=== PATIENT | female | born 1950 | race Caucasian/White ===

== ENCOUNTER 2016-11-27 14:08 | Inpatient (IN) | payer OTHER ==
[2016-11-27] MEDS ORDERED: NS 1,000 ML IV ONE (14:26)
[2016-11-27 14:41] LABS: % IMMATURE GRANULYOCYTES 0.3 % (0.0-1.1); ABSOLUTE IMMATURE GRANULOCYTES 0.02 10^3/uL (0.00-0.10); ADD DIFF? NO; ADD MORPH? NO; ADD SCAN? NO; ATYPICAL LYMPHOCYTE FLAG 10 (0-99); FRAGMENT RBC FLAG 0 (0-99); HEMATOCRIT 40.7 % (38.0-47.0); HEMOGLOBIN 14.1 g/dL (12.6-16.3); LEFT SHIFT FLG 0 (0-99); LIPEMIA HEMOLYSIS FLAG 90 (0-99); MEAN CELL HEMOGLOBIN 31.5 pg (27.9-34.1); MEAN CELL HEMOGLOBIN CONCENTR. 34.6 g/dL (32.4-36.7); MEAN CELL VOLUME 90.8 fL (81.5-99.8); MEAN PLATELET VOLUME 9.5 fL (8.7-11.7); PLATELET CLUMPS FLAG 10 (0-99); PLATELET COUNT 201 10^3/uL (150-400); RED BLOOD CELL COUNT 4.48 10^6/uL (4.18-5.33); RED CELL DISTRIBUTION WIDTH 12.8 % (11.5-15.2)
[2016-11-27 15:19] LABS: ANION GAP 14 mEq/L (8-16); CALCIUM 9.3 mg/dL (8.5-10.4); CARBON DIOXIDE 23 mEq/l (22-31); CHLORIDE 102 mEq/L (97-110); CREATININE 0.8 mg/dL (0.6-1.0); GLOMERULAR FILTRATION RATE > 60; GLUCOSE 119 mg/dL (70-100); POTASSIUM 4.1 mEq/L (3.5-5.2); SODIUM 139 mEq/L (134-144)
--- NOTE | 2016-11-27 15:29 | EDPHY ---
H & P Time Seen by Provider: 11/27/16 14:49 HPI/ROS: CHIEF COMPLAINT: Shortness of breath, left leg swelling HISTORY OF PRESENT ILLNESS: 66-year-old female presents with a one-week history of shortness of breath and left leg swelling. She returned from [facility] 8 days ago. The following day, she developed pain in her left calf, associated with gradually increasing swelling in the left calf. Also associated with gradually increasing shortness of breath. She is now short of breath while she is walking around her house. Intermittent swelling in both legs for 2 weeks. No associated chest pain, dizziness, cough or fever. No prior history of DVT or PE. REVIEW OF SYSTEMS: Constitutional: No fever, no chills Eyes: No visual changes ENT: No sore throat Respiratory: No cough Cardiac: No chest pain Gastrointestinal: No nausea, no vomiting, no abdominal pain Genitourinary: No hematuria, no dysuria Skin: No rash Neurological: No headache, no numbness, no weakness Psychiatric: No depression Past Medical/Surgical History: Denies Social History: Smoking Status: Never smoked Physical Exam: General Appearance: Alert, pleasant Eyes: Pupils equal and round, no conjunctival pallor or injection ENT, Mouth: Mucous membranes moist Neck: Normal inspection Respiratory: Lungs are clear to auscultation Cardiovascular: Regular tachycardia Gastrointestinal: Abdomen is soft and nontender Neurological: A&O, nonfocal, normal gait Skin: Warm and dry, no rash Extremities: left lower extremity swelling and tenderness Psychiatric: Mood and affect normal Constitutional: Initial Vital Signs Temperature (C) 36.7 C 11/27/16 14:12 Heart Rate 112 H 11/27/16 14:12 Respiratory Rate 22 H 11/27/16 14:12 Blood Pressure 152/74 H 11/27/16 14:12 O2 Sat (%) 90 L 11/27/16 14:12 O2 Delivery Mode Room Air O2 (L/minute) 2 Allergies/Adverse Reactions: meperidine HCl [From Demerol] Allergy (Intermediate, Verified 11/27/16 14:12) LOW BP Home Medications: Medication Instructions Recorded Ascorbic Acid [Vitamin C 500 mg 500 mg PO BID 11/27/16 (*)] Calcium Carbonate/Vitamin D3 1 each PO BID 11/27/16 [CALCIUM 600+D SOFTGEL] Herbals/Supplements -Info Only 1 ea PO DAILY 11/27/16 [place]-3 Fatty Acids/Fish Oil [Fish 1 each PO BID 11/27/16 Oil 1,000 mg Capsule] Vitamin B Complex [B Complex] 1 each PO DAILY 11/27/16 Medical Decision Making - Diagnostics EKG Interpretation: EKG interpreted by me reveals sinus rhythm, rate 97, no ST or T segment changes. Imaging: CT pulmonary angiogram read by Dr. Nain Atkinson reveals moderate to large volume bilateral pulmonary embolism including a nonocclusive saddle embolus. Bilateral lower extremity ultrasound read by Dr. Ruiz Pompa reveals bilateral lower extremity DVTs, greater on the left. ED Course/Re-evaluation: She is this patient presents with left lower extremity pain and swelling and gradually increasing shortness of breath. Clinical presentation consistent with acute pulmonary embolism and DVT. Stat bilateral lower extremity ultrasounds revealed DVTs and stat CT pulmonary angiogram reveals large volume PEs. Study results were discussed with the patient and her . Heparin per weight based protocol initiated. The patient was stable throughout her emergency department stay, with a normal blood pressure and mild tachycardia, with a heart rate in 100's. Oxygen 2 L by nasal cannula placed. IR thrombectomy /TPA not indicated in this stable pt. Will require close monitoring. The hospitalist service was consulted for admission. Differential Diagnosis: Differential diagnosis includes though it is not limited to pneumonia, pneumothorax, pulmonary embolism, aortic dissection, pericarditis, acute coronary syndrome. - Data Points Laboratory Results: Laboratory Results 11/27/16 14:29 11/27/16 14:29 Medications Given: Discontinued Medications Heparin Sodium (Porcine) (Heparin Injection) 0 unit IVP EDNOW ONE PRN Reason: Protocol Stop: 11/27/16 16:11 Last Admin: 11/27/16 16:36 Dose: 5,300 units Sodium Chloride (Ns) 1,000 mls @ 0 mls/hr IV ONCE ONE PRN Reason: Wide Open Stop: 11/27/16 14:27 Last Admin: 11/27/16 14:46 Dose: 1,000 mls Heparin Sodium (Porcine) (Heparin 50 Units/Ml (Premix)) 500 mls @ 0 mls/hr IV EDNOW ONE; Per Protocol PRN Reason: Protocol Stop: 11/27/16 16:11 Last Admin: 11/27/16 16:36 Dose: 500 mls Departure - Departure Disposition: [facility] Clinical Impression: Pulmonary embolism Qualifiers: Pulmonary embolism type: saddle Chronicity: acute Acute cor pulmonale presence : with acute cor pulmonale Qualified Code(s): I26.02 - Saddle embolus of pulmonary artery with acute cor pulmonale Condition: Serious
[2016-11-27] MEDS ORDERED: IOPAMIDOL (ISOVUE 370) 100 ML BTL IV ONE (15:38)
[2016-11-27] MEDS ORDERED: HEPARIN 10,000 UNIT/10 ML MDV IVP ONE (16:10)
[2016-11-27] MEDS ORDERED: HEPARIN/DEXTROSE 500 ML IV ONE (16:10)
--- NOTE | 2016-11-27 16:13 | CPEKG ---
Heart Rate: 97 RR Interval: 619 P-R Interval: 208 QRSD Interval: 82 QT Interval: 368 QTC Interval: 468 P Tafton: 45 QRS Tafton: -41 T Wave [place]on: 17 EKG Severity - ABNORMAL ECG - EKG Impression: SINUS RHYTHM EKG Impression: LEFT ANTERIOR FASCICULAR BLOCK EKG Impression: CONSIDER LEFT VENTRICULAR HYPERTROPHY Electronically Signed By: Teresita Lemus 27-Nov-2016 21:57:03
[2016-11-27 16:22] LABS: INR 1.08 (0.83-1.16); PROTIME(PATIENT) 13.9 SEC (12.0-15.0)
[2016-11-27 16:43] LABS: TROPONIN I < 0.012 ng/mL (0-0.034)
[2016-11-27 16:52] LABS: APTT 26.9 SEC (23.0-38.0)
[2016-11-27] MEDS ORDERED: ONDANSETRON 4 MG/2 ML VIAL IVP PRN (17:02)
[2016-11-27] MEDS ORDERED: ONDANSETRON DISINTEGRATING 4 MG TAB PO PRN (17:02)
[2016-11-27] MEDS ORDERED: ACETAMINOPHEN 325 MG TAB PO PRN (17:02)
--- NOTE | 2016-11-27 18:12 | GHP ---
[f rep st] HISTORY AND PHYSICAL DATE OF ADMISSION: 11/27/2016 CHIEF COMPLAINT: Bilateral pulmonary embolism and DVTs. HPI: The patient is a 66-year-old female with no significant past medical history, presenting with dyspnea and left leg pain. The patient and had been visiting [place] from October 27 through November 19. Flew for [place] to [place] to [facility] without issue. She states she was walking through the airport carrying luggage without any issues. Then a week ago she developed pain in her left calf that felt like a charley horse. It went away for a couple days and then restarted, and then radiated up to her thigh. The worst that the pain was 2-3. She noted that her ankles were swollen when she got back , but that is not uncommon when she flies. This went away. Then a few days ago noted left, greater than right, swelling in her ankle. What was most concerning for her is that she became very dyspneic last Friday. She can only walk a block without feeling short of breath. Denies chest pain, dizziness , lightheadedness. Stated she felt feverish with nonproductive cough. Also reported nasal congestion last week. REVIEW OF SYSTEMS: I completed 10-point review of systems, negative except as noted in HPI. PAST MEDICAL HISTORY: None. PAST SURGICAL HISTORY: Right knee surgery x3, cholecystectomy, hysterectomy, cyst on the salivary gland. FAMILY HISTORY: Mother with ovarian cancer. Brother with lymphoma. Father with diabetes. SOCIAL HISTORY: Lives in the area with her , been 45 years. Social drinker. No illicits or alcohol next. ALLERGIES: Demerol. MEDICATIONS: Calcium, herbals. PHYSICAL EXAM: VITAL SIGNS: Temperature 36.7, blood pressure 152/74, heart rate 112, now 96, respiration 20, sat 98% on 2 L, 90 on room air. GENERAL: The patient sitting up in bed, no acute distress. HEENT: PERRLA. EOMI. Oropharynx clear. CV: Regular rate and rhythm. No murmurs, gallops, or rubs. Trace pedal edema. LUNGS: Clear to auscultation bilaterally. ABDOMEN: Soft , nontender, nondistended. Positive bowel sounds. : No suprapubic or CVA tenderness. MUSCULOSKELETAL: 5/5 upper lower extremity strength. SKIN: Warm , dry. NEURO: 2 through 12 intact. PSYCH: Alert and oriented x3. LABS: WBC 7.8, hemoglobin 14, hematocrit 40, platelets 201, sodium 139, potassium 4.1, chloride 102, BUN 9, creatinine 0.8, glucose 119, calcium 9.3. Troponin less than 0.012. BNP 899. D-dimer was 19.8, INR 1.08. CTA, large volume of acute pulmonary thrombolic disease with features suggestive of right heart strain. Thrombus involves right and left lower lobe, right middle lobe, and to a lesser degree subsegmental branches of the bilateral upper lobes. A large central thrombus bridges the bifurcation in the right and left main pulmonary artery without occluding the main pulmonary arteries. IVC is minimally posteriorly deflected, suggesting right heart strain. EKG personally reviewed by me, normal sinus rhythm, LVH with T-wave inversion, 3 ST flattening in aVF. Ultrasound lower extremities intraluminal thrombus in the mid left femoral vein extending distally through the popliteal and calf veins. The right leg there is partial intraluminal thrombus in the right popliteal vein. ASSESSMENT AND PLAN: 1. Large volume pulmonary embolism, deep vein thrombosis. Suspect provoked in setting of recent travel. The patient is currently hemodynamically stable with systolic blood pressure 140s with minimal oxygen need. Started her on heparin drip in the emergency room. We will continue this. Add on BNP and troponin. Check an echocardiogram. There is no emergent need for lytics at this point. We will monitor closely in the SDU overnight. I discussed in length with both she and her in regard to oral anticoagulants Coumadin versus Xarelto. They will decide this overnight. 2. Diet: Regular. 3. Deep vein thrombosis prophylaxis, on heparin drip. PLAN: The patient warrants observation admission to the SDU given large clot burden, requiring heparin drip and serial laboratory monitoring. /[id number]/MODL MTDD
[2016-11-27] MEDS: CALCIUM CARB W/VIT D 500 MG TAB PO SCH (23:16)
[2016-11-27] MEDS: OMEGA-3 FATTY ACIDS 1,000 MG CAP PO SCH (23:16)
[2016-11-27] MEDS: ASCORBIC ACID 500 MG TAB PO SCH (23:16)
[2016-11-28 05:10] LABS: HEMOGLOBIN 11.7 g/dL (12.6-16.3); MEAN CELL HEMOGLOBIN 31.5 pg (27.9-34.1); MEAN CELL HEMOGLOBIN CONCENTR. 34.4 g/dL (32.4-36.7); MEAN CELL VOLUME 91.4 fL (81.5-99.8); RED BLOOD CELL COUNT 3.72 10^6/uL (4.18-5.33); RED CELL DISTRIBUTION WIDTH 12.8 % (11.5-15.2)
[2016-11-28 06:13] LABS: ANION GAP 8 mEq/L (8-16); CALCIUM 8.3 mg/dL (8.5-10.4); CARBON DIOXIDE 22 mEq/l (22-31); CHLORIDE 108 mEq/L (97-110); CREATININE 0.7 mg/dL (0.6-1.0); GLOMERULAR FILTRATION RATE > 60; GLUCOSE 121 mg/dL (70-100); POTASSIUM 4.2 mEq/L (3.5-5.2); SODIUM 138 mEq/L (134-144)
[2016-11-28] MEDS ORDERED: HEPARIN 10,000 UNIT/10 ML MDV IVP PRN (08:08)
[2016-11-28] MEDS ORDERED: HEPARIN/DEXTROSE 500 ML IV SCH (08:30)
[2016-11-28] MEDS ORDERED: Herbals/Supplements -Info Only PO SCH (09:00)
[2016-11-28] MEDS: ASCORBIC ACID 500 MG TAB PO SCH ×2 (09:52→21:18)
[2016-11-28] MEDS: OMEGA-3 FATTY ACIDS 1,000 MG CAP PO SCH ×2 (09:52→21:18)
[2016-11-28] MEDS: VITAMIN B COMPLEX 1 EA CAP/TAB PO SCH (09:52)
[2016-11-28] MEDS: CALCIUM CARB W/VIT D 500 MG TAB PO SCH ×2 (09:52→21:18)
--- NOTE | 2016-11-28 11:19 | ECHO ---
[id number] + + [address] : : [place] [address] : : [phone] + + Adult Echocardiographic Report + -------+ :Name: DENISE GARCIA KStudy Date: 11/28/2016 07:42 AM : : Hospital Admission Number: [id number] Locati on: 247: :: 1950 Gender: Female Height: 68 in : :Age: 66 yrs Race: WH Weight: 196 lb : :Reason For Study: Eval RV Strain : : BSA: 2.0 meter s2 : :History: Large Volume PE : + -------+ MMode/2D Measurements \T\ Calculations IVSd: 1.0 cm RVDd: 3.4 cm FS: 33.1 % Ao root diam: 2.6 cm LVPWd: 1.1 cm LVIDd: 3.8 cm EDV(Teich): 62.0 ml ACS: 1.7 cm LVIDs: 2.5 cm ESV(Teich): 23.3 ml EF(Teich): 62.4 % Normal Measurement Values: + + :LVIDd (3.5-5.7cm) IVSd (0.6-1.1cm) LVPWd (0.6-1.1cm) Aortic Root (2.0-3.7cm)Left Atrium (1.5-4.0cm): :LV Vol(d) (76-115ml) LV Vol(s) (29-48ml) Ejec Fraction (50-65%)PV Bowen (0.6- 1.2m/s) TV Bowen (0.4-1.0m/s) : :MV E Bowen (0.8-1.0m/s)MV A Bowen (0.3-1.0m/s)LVOT Bowen (0.7-1.2m/s) Asc Ao Bowen ( 0.9-1.8m/s) : + + Doppler Measurements \T\ Calculations MV E max bowen: Ao V2 max: LV V1 max: PA V2 max: 71.6 cm/sec 130.3 cm/sec 86.9 cm/sec 71.9 cm/sec MV A max bowen: Ao max P.8 mmHgLV V1 max PG: PA max P.3 cm/sec 3.0 mmHg 2.1 mmHg MV E/A: 0.78 TR max bowen: 305.4 cm/sec TR max P.3 mmHg RAP systole: 5.0 mmHg RVSP(TR): 42.3 mmHg Left Ventricle The left ventricle is normal in size. There is normal left ventricular wall thickness. The left ventricular ejection fraction is normal. There is Doppler evidence for diastolic dysfunction. Ejection Fraction = 63%. The left ventricular wall motion is normal. Right Ventricle The right ventricle is mildly dilated. The right ventricular systolic function is mildly reduced. Atria The left atrial size is normal. Right atrial size is normal. Mitral Valve There is mild mitral annular calcification. There is no evidence of mitral valve prolapse. There is no mitral valve stenosis. There is no mitral regurgitation noted. Tricuspid Valve There is mild tricuspid regurgitation. Right ventricular systolic pressure is 42mmHg. There is Doppler evidence for mild pulmonary hypertension. Aortic Valve The aortic valve is trileaflet. The aortic valve opens well. There is no aortic stenosis. There is no aortic insufficiency. Pulmonic Valve The pulmonic valve is normal in structure and function. There is no pulmonic valvular regurgitation. Great Vessels The aortic root is normal size. Pericardium/Pleural There is no pericardial effusion. Conclusion A complete two-dimensional transthoracic echocardiogram was performed (2D, M-mode, Doppler and color flow Doppler). The left ventricular ejection fraction is normal. There is Doppler evidence for diastolic dysfunction. Ejection Fraction = 63%. The left ventricular wall motion is normal. The right ventricle is mildly dilated. The right ventricular systolic function is mildly reduced. There is mild mitral annular calcification. There is mild tricuspid regurgitation. Right ventricular systolic pressure is 42mmHg. There is Doppler evidence for mild pulmonary hypertension. The aortic valve is trileaflet. There is no pericardial effusion. Final Reading Physician: David Davison signed on 11/28/2016 11:18 AM Ordering Physician: Mini Davila Performed By: Xavier Maharaj, CS
--- NOTE | 2016-11-28 11:39 | GCON ---
[f rep st] CONSULTATION IMPLEMENTATION ARCHITECT CONSULTATION. REASON FOR ADMISSION: Pulmonary embolus, DVT. HISTORY OF PRESENT ILLNESS: Ms. Kimball is an extremely pleasant 66-year-old white female, without ar st medical history. She was on a long plane ride from [place], coming back on November 19. She began having left calf pain that went away after several days. She presented to the emergency room with i ncreased breathlessness, worse with any form of exertion. She denies any chest pain, pleuritic-type chest pain or angina equivalent. There is no lightheadedness, no dizziness. She was seen in the e mergency room, diagnosed with a pulmonary embolus and admitted. Currently, she is resting comfortab ly. She is off supplemental oxygen. PAST MEDICAL HISTORY: None. PAST SURGICAL HISTORY: Hysterectomy, cholecystectomy, right knee surgery x3. ALLERGIES: Demerol. SOCIAL HISTORY: No history of tobacco use. Infrequent alcohol use. She is retired from . She r esides with her . Has excellent family support. MEDICATIONS: Calcium and herbal supplements. PHYSICAL EXAM: VITAL SIGNS: Blood pressure is 119/59, pulse 79, respirations 16, temperature 37.2, oxygen saturation 96% on 2 L. GENERAL: She is a well-developed, well-nourished, 66-year-old, whit e female who is resting comfortably in no acute distress. HEENT: Eyes are HEVER, EOMI. Throat show s no erythema or tonsillar hypertrophy. NECK: Supple. No cervical adenopathy. HEART: Regular ra te and rhythm without murmurs, rubs, or gallops. LUNGS: Clear to auscultation. No wheeze or rhonc hi. ABDOMEN: Soft, nontender. Bowel sounds are present in all 4 quadrants. EXTREMITIES: No club hilda, cyanosis, or edema. LABORATORIES: White count 6.5, hemoglobin 11, hematocrit 34, platelet count is 162. Sodium 138, po tassium 4.2, chloride 100, CO2 is 22, BUN 7, creatinine 0.7, glucose is 121. BNP is mildly elevated . Duplex ultrasound lower extremity, shows deep venous thrombosis in the left leg in the right popl iteal vein. CT angiogram of the chest, shows large volume acute pulmonary embolus with evidence of saddle emboli. Echocardiogram is currently pending. IMPRESSION: 1. Extensive pulmonary embolus. This is likely caused by her long plane ride. She is hemodynamica lly stable. 2. Deep venous thrombosis. RECOMMENDATIONS: 1. We will continue heparin for the next 48 hours. 2. Would recommend starting patient on Eliquis, as this has a better bleed risk as compared to Coum yasmin. 3. Awaiting echocardiogram. 4. Begin ambulation. 5. Patient is stable for transfer to the TCU. /[id number]/MODL
--- NOTE | 2016-11-28 16:41 | HOSPPROG ---
Hospitalist Progress Note Assessment/Plan: 66 yo F with no significant PMH admitted with large PE/DVT # PE/DVT: large volume but HD stable and not significantly hypoxic. Triggered by long air travel. Initially on heparin gtt, now on eliquis. Appreciate pulm input. Echo pending # acute hypoxic resp failure: resolved overnight, 2/2 above # right heart strain: noted on CT, echo pending # anemia: h/h slightly decreased overnight, likely dilutional, trending # IP status Patient new to my care. old records reviewed and summarized as above. Care plan reviewed with Salazar and multdisciplinary care team. Further hx obtained from patients present at [facility] Subjective: no significant overnight events, up walking, feeling better Objective: Vital Signs Temp Pulse Resp BP Pulse Ox 37.2 C 79 16 119/59 L 96 11/28/16 08:00 11/28/16 08:00 11/28/16 08:00 11/28/16 08:00 11/28/16 08:00 Laboratory Results 11/28/16 05:00 11/28/16 05:00 11/27/16 11/28/16 11/29/16 05:59 05:59 05:59 Intake Total 1857 Output Total 850 Balance 1007 PT 13.9 SEC (12.0-15.0) 11/27/16 14:29 INR 1.08 (0.83-1.16) 11/27/16 14:29 awake alert nad anicteric op clear rrr nomrg cta b soft nt nd trace ble edema warm dry well perfused oriented appropriate - Time Spent With Patient Time Spent with Patient: greater than 35 minutes Time Spent with Patient: Greater than 35 minutes spent on this patients care, greater than 50% of time spent counseling, educating, and coordinating care regarding the above mentioned plan. ICD10 Worksheet Patient Problems: Problems Problem Status Onset Chest pain Active Pulmonary embolism Acute
[2016-11-29] MEDS: VITAMIN B COMPLEX 1 EA CAP/TAB PO SCH (09:17)
[2016-11-29] MEDS: ASCORBIC ACID 500 MG TAB PO SCH ×2 (09:17→20:52)
[2016-11-29] MEDS: OMEGA-3 FATTY ACIDS 1,000 MG CAP PO SCH ×2 (09:17→20:52)
[2016-11-29] MEDS: APIXABAN 5 MG TAB PO SCH ×2 (09:17→20:52)
[2016-11-29] MEDS: CALCIUM CARB W/VIT D 500 MG TAB PO SCH ×2 (09:17→20:52)
--- NOTE | 2016-11-29 09:34 | SOAPPROG ---
SOAP Progress Note Assessment/Plan: Assessment: * Extensive PE with saddle embolism * DVT * Resp-off o2 * Mild pulmonary hypertension-RVSP 42 mmHg Plan: Eliquis to start today Home tomorrow ambulation Subjective: Comfortable Objective: Vital Signs Temp Pulse Resp BP Pulse Ox 37.0 C 93 23 H 117/55 L 92 11/28/16 20:00 11/29/16 04:00 11/29/16 04:00 11/29/16 04:00 11/29/16 04:00 11/28/16 11/29/16 11/30/16 05:59 05:59 05:59 Intake Total 1370 Balance 1370 PT 13.9 SEC (12.0-15.0) 11/27/16 14:29 INR 1.08 (0.83-1.16) 11/27/16 14:29 Physical Exam - Physical Exam General Appearance: WD/WN, alert, no apparent distress EENT: PERRL/EOMI, normal ENT inspection, pharynx normal, TMs normal Neck: non-tender, full range of motion, supple, normal inspection Respiratory: chest non-tender, lungs clear, normal breath sounds Cardiac/Chest: normal peripheral pulses, regular rate, rhythm Peripheral Pulses: 2+: carotid (R), carotid (L), femoral (R), femoral (L), dorsalis-pedis (R), dorsalis-pedis (L) Abdomen: normal bowel sounds, non-tender, soft Pelvic Exam: deferred ICD10 Worksheet Patient Problems: Problems Problem Status Onset Pulmonary embolism Acute Chest pain Active
--- NOTE | 2016-11-29 16:22 | HOSPPROG ---
Hospitalist Progress Note Assessment/Plan: 66 yo F with no significant PMH admitted with large PE/DVT # PE/DVT: large volume but HD stable and not significantly hypoxic. Triggered by long air travel. Initially on heparin gtt, now on eliquis. Appreciate pulm input. Echo without any significant right heart strain # acute hypoxic resp failure: resolved overnight, 2/2 above # right heart strain: noted on CT, echo pending # anemia: h/h slightly decreased overnight, likely dilutional, trending # IP status Care plan reviewed with Martin and multdisciplinary care team. >45 minutes spent in face to face care of patient and her counseling them regarding expectations in coming weeks, treatment options, f/u care plans Subjective: no significant overnight events, patient currently feeling well, she has been ambulating, off of oxygen, no chest pain Objective: Vital Signs Temp Pulse Resp BP Pulse Ox 36.7 C 101 H 17 140/58 H 100 11/29/16 12:00 11/29/16 12:00 11/29/16 12:00 11/29/16 12:00 11/29/16 12:00 11/28/16 11/29/16 11/30/16 05:59 05:59 05:59 Intake Total 1370 Balance 1370 PT 13.9 SEC (12.0-15.0) 11/27/16 14:29 INR 1.08 (0.83-1.16) 11/27/16 14:29 awake alert nad anicteric op clear rrr nomrg cta b soft nt nd trace ble edema warm dry well perfused oriented appropriate ICD10 Worksheet Patient Problems: Problems Problem Status Onset Pulmonary embolism Acute Chest pain Active
[2016-11-30] MEDS: CALCIUM CARB W/VIT D 500 MG TAB PO SCH (07:59)
[2016-11-30] MEDS: APIXABAN 5 MG TAB PO SCH (08:00)
[2016-11-30] MEDS: ASCORBIC ACID 500 MG TAB PO SCH (08:00)
[2016-11-30] MEDS: VITAMIN B COMPLEX 1 EA CAP/TAB PO SCH (08:00)
[2016-11-30] MEDS: OMEGA-3 FATTY ACIDS 1,000 MG CAP PO SCH (08:01)
[2016-11-30 09:17] VITALS: TEMP 98
[2016-11-30 11:27] VITALS: BP 141/65; PULSE 100; RESP 16; O2SAT 93
--- NOTE | 2016-11-30 11:45 | PDDCSUM ---
Discharge Summary Discharge Summary: Dates of service: 11/27-11/30/16 Discharge dx: # PE/DVT # acute hypoxic respiratory failure # mild anemia Consultations: pulmonary Procedures performed: CTA, echo, BLE US Hospital course by problem: # PE/DVT: large volume bilateral PE including saddle embolus without complete occlusion. Submassive, without HD compromise or prolonged hypoxia. Treated initially with heparin gtt and transition to eliquis per patient preference. Recommending that after completion of AC tx in 6 months that she follow up with hematology for evaluation of possible underlying hypercoagulable state given significant clot burden on this event. Triggered by long flight. # acute hypoxic resp failure: resolved overnight, 2/2 above # anemia: h/h slightly decreased overnight, likely dilutional, OP follow up recommended DC home Meds: see EHR > 35 minutes spent in dc of patient, more than half in face to face counseling of patient and her
== END 2016-11-30 12:55 | disposition home or self-care (01) | DRG 175 ==
LOC: INTOOBSV 16:16 → F2N 18:31 → OBSVTOIN 11-28 16:38 → F2W 11-29 18:11
PROVIDERS: ADMIT Internal Medicine; ATTEND Internal Medicine
DX: I26.92 Saddle embolus of pulmonary artery without acute cor pulmonale (principal); I26.99 Other pulmonary embolism without acute cor pulmonale; J96.01 Acute respiratory failure with hypoxia; I82.403 Acute embolism and thrombosis of unspecified deep veins of lower extremity, bilateral
CPT/HCPCS: 85520-90; G0378; J1644; Q9967

== ENCOUNTER 2017-07-16 10:15 | Inpatient (IN) | payer OTHER ==
[~2017-07-16 10:15] MED LIST: ROPIVACAINE 0.2% 80 MG, EPINEPHrine 0.2 MG, KETOROLAC TROMETHAMINE 30 MG in BAG 0 ML IU ONE; TRANEXAMIC ACID 3,000 MG in NS 50 ML IRR ONE
[2017-07-16] MEDS ORDERED: TRANEXAMIC ACID 3,000 MG/50 ML BAG IRR ONE (10:36)
[2017-07-16] MEDS ORDERED: ACETAMINOPHEN 325 MG TAB PO ONE (11:35)
[2017-07-16] MEDS ORDERED: DEXAMETHASONE 4 MG/ML VIAL IVP ONE (11:35)
[2017-07-16] MEDS ORDERED: ceFAZolin 2 GM/SWFI 2 GM/20 ML SYR IVP ONE (11:35)
[2017-07-16] MEDS ORDERED: FAMOTIDINE 20 MG TAB PO ONE (11:35)
[2017-07-16] MEDS ORDERED: LIDOCAINE 1% 2 ML INJ ID PRN (11:37)
[2017-07-16] MEDS ORDERED: LR 1,000 ML IV ONE (11:37)
--- NOTE | 2017-07-16 11:59 | PDHPUP ---
History & Physical Update H&P update statement: This history and physical update is based on an assessment of the patient which was completed after admission or registration (within 24 hours), but prior to the surgery/procedure. H&P update: H&P reviewed & patient examined, no change in patient's condition since H&P completed
[2017-07-16] MEDS ORDERED: MIDAZOLAM 2 MG/2 ML VIAL IVP ONE (13:20)
--- NOTE | 2017-07-16 13:23 | PDANEPAE ---
ANE History of Present Illness DJD L hip s/r L DU ANE Past Medical History - Cardiovascular History Hx Hypertension: No Hx Arrhythmias: No Hx Chest Pain: No Hx Coronary Artery / Peripheral Vascular Disease: No Hx CHF / Valvular Disease: No Hx Palpitations: No - Pulmonary History Hx COPD: No Hx Asthma/Reactive Airway Disease: No Hx Recent Upper Respiratory Infection: No Hx Oxygen in Use at Home: No Hx Sleep Apnea: No Sleep Apnea Screening Result - Last Documented: Negative Pulmonary History Comment: Hx Saddle PE in December 2016. W/U negative. S/P 6 months of anti-coagulation - Neurologic History Hx Cerebrovascular Accident: No Hx Seizures: No Hx Dementia: No - Endocrine History Hx Diabetes: No - Renal History Hx Renal Disorders: No - Liver History Hx Hepatic Disorders: No - Neurological & Psychiatric Hx Hx Neurological and Psychiatric Disorders: No - Cancer History Hx Cancer: No - Congenital Disorder History Hx Congenital Disorders: No - GI History Hx Gastrointestinal Disorders: No - Other Health History Other Health History: ON IRON FOR LOW BLOOD COUNT - Chronic Pain History Chronic Pain: No - Surgical History Prior Surgeries: R KNEE SX X3 . hysterectomy. gland removed from neck ( r side). R arm sx as child ANE Review of Systems Review of Systems: - Exercise capacity METS (RN): 4 METS ANE Patient History - Allergies Allergies/Adverse Reactions: meperidine HCl [From Demerol] Allergy (Intermediate, Verified 11/27/16 14:12) LOW BP - Home Medications Home medications: home medication list seen and reviewed Home Medications: Ferrous Sulfate [Ferrous Sulf 325 MG (*)] 325 mg PO DAILY 06/09/17 [Last Taken 2 Weeks Ago ~07/02/17] Herbals/Supplements -Info Only 1 ea PO DAILY 06/09/17 [Last Taken 3 Weeks Ago ~ 06/25/17] Ibuprofen [Motrin (*)] 200 - 400 mg PO Q4-6PRN PRN 06/09/17 [Last Taken 3 Months Ago ~04/15/17] - NPO status NPO Since - Liquids (Date): 07/16/17 NPO Since - Liquids (Time): 08:00 NPO Since - Solids (Date): 07/15/17 NPO Since - Solids (Time): 20:00 - Anes Hx Anes Hx: no prior problems - Smoking Hx Smoking Status: Never smoked - Alcohol Use Alcohol Use: Occasionally - Family Anes Hx Family Anes Hx: none Family Hx Anesthesia Complications: NONE ANE Labs/Vital Signs - Labs - CBC WBC: reviewed and okay - Vital Signs Blood Pressure: 138/72 Heart Rate: 79 Respiratory Rate: 15 O2 Sat (%): 92 Height: 172.72 cm Weight: 90.718 kg ANE Physical Exam - Airway Mallampati Score: Class 1 Mouth exam: normal dental/mouth exam - Pulmonary Pulmonary: no respiratory distress - Cardiovascular Cardiovascular: regular rate and rhythym - ASA Status ASA Status: I ANE Anesthesia Plan Anesthesia Plan: spinal (R/B/A explained and agrees to proceed)
[2017-07-16] MEDS ORDERED: MIDAZOLAM 2 MG/2 ML VIAL ONE (13:24)
[2017-07-16] MEDS ORDERED: fentaNYL 100 MCG/2 ML INJ ONE (13:40)
[2017-07-16] MEDS ORDERED: PROPOFOL/EMULSION 500 MG/50 ML BOTTLE IV ONE ×2 (13:40→14:33)
[2017-07-16] MEDS ORDERED: ONDANSETRON 4 MG/2 ML VIAL ONE (13:40)
[2017-07-16] MEDS ORDERED: METOCLOPRAMIDE 10 MG/2 ML VIAL IVP PRN ×2 (15:01→15:06)
[2017-07-16] MEDS ORDERED: ALBUTEROL 3 ML DEYVIAL IH PRN (15:01)
[2017-07-16] MEDS ORDERED: LR 500 ML IV PRN (15:01)
[2017-07-16] MEDS ORDERED: fentaNYL 100 MCG/2 ML INJ IVP PRN (15:01)
[2017-07-16] MEDS ORDERED: ACETAMINOPHEN 500 MG TAB PO PRN (15:01)
[2017-07-16] MEDS ORDERED: OXYCODONE/APAP 5/325 TAB PO PRN (15:01)
[2017-07-16] MEDS ORDERED: PROMETHAZINE HCL 25 MG/ML INJ IVP PRN ×2 (15:01→15:06)
[2017-07-16] MEDS ORDERED: NALOXONE HCL 0.4 MG/ML INJ IVP PRN (15:01)
[2017-07-16] MEDS ORDERED: HYDROCODONE/APAP 5/325 TAB PO PRN (15:01)
[2017-07-16] MEDS ORDERED: ONDANSETRON 4 MG/2 ML VIAL IVP PRN ×2 (15:01→15:06)
[2017-07-16] MEDS ORDERED: DEXAMETHASONE 4 MG/ML VIAL IVP PRN (15:01)
[2017-07-16] MEDS ORDERED: LABETALOL HCL 5 MG/ML 20 ML MDV IVP PRN (15:01)
[2017-07-16] MEDS ORDERED: DIPHENOXYLATE/ATROPINE LOMOTIL 1 TAB PO PRN (15:06)
[2017-07-16] MEDS ORDERED: PROMETHAZINE HCL 25 MG SUPPR PR PRN (15:06)
[2017-07-16] MEDS ORDERED: ONDANSETRON DISINTEGRATING 4 MG TAB PO PRN (15:06)
[2017-07-16] MEDS ORDERED: LACTULOSE 20 GM/30 ML UDCUP PO PRN (15:06)
[2017-07-16] MEDS ORDERED: MAGNESIUM HYDROXIDE 30 ML UDCUP PO PRN (15:06)
[2017-07-16] MEDS ORDERED: TEMAZEPAM 15 MG CAP PO PRN (15:06)
[2017-07-16] MEDS ORDERED: BISACODYL 10 MG SUPP PR PRN (15:06)
[2017-07-16] MEDS ORDERED: CYCLOBENZAPRINE 10 MG TAB PO PRN (15:06)
[2017-07-16] MEDS ORDERED: diphenhydrAMINE 25 MG CAP PO PRN (15:06)
[2017-07-16] MEDS ORDERED: oxyCODONE IR 5 MG TAB PO PRN (15:06)
[2017-07-16] MEDS ORDERED: POLYETHYLENE GLYCOL 3350 17 GM PKT PO PRN (15:06)
--- NOTE | 2017-07-16 15:06 | POSTOPPROG ---
Post Op Note Date of Operation: 07/16/17 Surgeon: Latanya Espinoza Computer Systems Software Architect: zia espinoza Anesthesiologist: dr. dupree Anesthesia: Spinal Pre-op Diagnosis: left hip OA Post-op Diagnosis: same Indication: left hip pain due to OA that failed conservative measures Procedure: L DU ant approach Findings: severe hip OA Inf/Abcess present in the surg proc area at time of surgery?: No EBL: 100-500
[2017-07-16] MEDS ORDERED: LR 1,000 ML IV SCH (15:30)
[2017-07-16] MEDS: ACETAMINOPHEN 325 MG TAB PO SCH ×2 (17:53→23:27)
[2017-07-16] MEDS: SENNOSIDES/DOCUSATE SODIUM TAB PO SCH (20:57)
[2017-07-16] MEDS: APIXABAN 2.5 MG TAB PO SCH (20:57)
[2017-07-16] MEDS: FAMOTIDINE 20 MG TAB PO SCH (20:57)
[2017-07-16] MEDS: ceFAZolin 2 GM/DEXTROSE 100 ML IV SCH (22:10)
[2017-07-17 05:10] VITALS: O2SAT 96
--- NOTE | 2017-07-17 05:17 | GOP ---
[f rep st] OPERATIVE REPORT DATE OF OPERATION: 07/16/2017 SURGEON: Shaunna Dumont MD RN PRIMARY CARE: SÁNCHEZ Gardner ANESTHESIA: Spinal. PREOPERATIVE DIAGNOSIS: Left hip osteoarthritis. POSTOPERATIVE DIAGNOSIS: Left hip osteoarthritis. PROCEDURE PERFORMED: Left total hip arthroplasty with x-ray. FINDINGS: ESTIMATED BLOOD LOSS: 200 cc. INDICATIONS: The patient has progressively worsening arthritis of the hip which has failed medical m anagement. The patient understands the treatment options including continued non-operative care and has selected surgical intervention. The patient has decided to undergo total hip arthroplasty via th e direct anterior approach, understanding the risks of the procedure including, but not limited to, n eurovascular injury, infection, persistent pain, component wear and loosening, deep venous thrombosis , pulmonary embolism, limb length inequality, hip instability (including dislocation), and intra-oper ative fractures. DESCRIPTION OF PROCEDURE: After proper identification of the patient including verification and rosalba ing the surgical site, the patient was brought to the operating room and placed in the supine positio n. All bony prominences were well padded. Anesthesia was induced without complication and intraveno us prophylactic antibiotics were administered prior to skin incision. The operative leg was placed in the Trumpf Arch table extension and the well leg in a Yellofin leg ho lder. The patient was prepped and draped in the usual sterile fashion. The C-arm was draped for int ra-operative fluoroscopy to check acetabular position, femoral component position including leg lengt h and femoral offset. Attention was then drawn to surgical exposure of the hip. An incision was made with a #10 [employer] r blade starting 3 cm lateral and 3 cm distal to the anterior superior iliac spine measuring 8-10 cm and coursing distally toward the greater trochanter. The skin and subcutaneous tissues were divided sharply down to the fascia bonilla. The fascia bonilla was incised in line with the skin incision exposing the underlying tensor fascia bonilla muscle. The muscle was bluntly elevated from the fascia and the f irst extracapsular Cobra retractor was placed laterally at the junction of the superior femoral neck and greater trochanter. The lateral femoral circumflex vessels were identified, cauterized, and divi ded with the Aquamantys bipolar cautery. The deep investing fascia of the TFL was divided to allow p danya mobilization of the muscle preventing damage during the retraction. The reflected head of the rectus femoris muscle was elevated off the anterior hip capsule and a medial Cobra retractor was plac ed just proximal to the lesser trochanter. The anterior capsulotomy was made sharply from the superolateral acetabulum to the saddle junction of the superior femoral neck and greater trochanter, then coursing inferomedial towards the lesser troc hanter. The retractors were then placed in the intracapsular position for femoral neck osteotomy. C orresponding to pre-operative templating, the osteotomy was made with the oscillating saw carefully p rotecting the greater trochanter and soft tissues. The femoral head was removed from the acetabulum with a corkscrew and confirmed to be severely arthritic with exposed bone, deformity and osteophytes. Similar findings were confirmed in the acetabulum. The Arch table extension was then placed in 40 degrees external rotation. Attention was then drawn to the acetabular preparation. After placement of the anterior and posterio r Cobra retractors outside the labrum and intracapsular, the circumferential labrum was removed sharp ly. The foveal contents were then removed and hemostasis obtained with cautery. The first reamer selected was sized using the removed femoral head. Reaming began with medialization and then commenced in 2 mm increments at 45 degrees of abduction and 15 degrees of anteversion using fluoroscopic navigation. Reaming ceased 1 mm less than the definitive acetabular component and loki esponded to the pre-operative templating. The final acetabular component was inserted using fluorosc opy to achieve proper orientation yielding excellent purchase and stability in the acetabulum. The f inal acetabular liner was then placed and its seating confirmed. Attention was then turned to the femur. The Arch table extension was placed in extension and adducti on, delivering the osteotomized femoral neck into the wound. A 2-pronged femoral elevator was placed at the calcar and another at the tip of the greater trochanter. The posterolateral capsule was rele ased with cautery allowing mobilization of the femur lateral and anterior for preparation. The exter nal rotators were visualized and preserved. A curette and rongeur were used to open the starting poi nt for broaching. Serial broaching started with the #0 broach and ended with the broach that exhibit ed excellent fit in the proximal femur. A change in pitch during mallet strikes was accompanied by t he inability to advance the broach any further. The trial reduction was performed and fluoroscopic n avigation was utilized to check limb length. Adjustments were made to equalize limb length according ly. After the final trials were accepted they were removed and the wound was copiously lavaged. The femo ral component was seated to the same depth as the final broach and the femoral head was impacted onto the clean trunnion. The hip was then reduced for the final time and once more fluoroscopy was used to check that limb length equality was achieved. The wound was irrigated and closed in layers, the fascia bonilla with 2-0 Quill, the subcutaneous tissue with 2-0 Quill, and the skin with Dermabond. Sterile dressings were applied. Final sharps and spon ge counts were accurate. The patient was then transferred to a hospital bed and brought to the [facility] room in stable condition. IMPLANTS: Accolade II size 5 at 127. Acetabular component a 56 mm Tritanium. The liner is a Triden t X3 36 mm. The head is a Biolox Delta 36 mm -2.5. /[id number]/MODL
[2017-07-17] MEDS: ceFAZolin 2 GM/DEXTROSE 100 ML IV SCH (05:58)
[2017-07-17] MEDS: ACETAMINOPHEN 325 MG TAB PO SCH (05:59)
[2017-07-17 07:48] VITALS: BP 122/64; PULSE 72; RESP 14; TEMP 97.9
[2017-07-17] MEDS: APIXABAN 2.5 MG TAB PO SCH (09:02)
[2017-07-17] MEDS: SENNOSIDES/DOCUSATE SODIUM TAB PO SCH (09:03)
[2017-07-17] MEDS: FAMOTIDINE 20 MG TAB PO SCH (09:03)
--- NOTE | 2017-07-17 10:06 | SOAPPROG ---
SOAP Progress Note Assessment/Plan: Assessment: Patient is doing well POD 1 s/p L DU Pain management: pain is well controlled on oral pain meds. VTE ppx: recommend eliquis 2.5mg twice daily for 3 weeks, cont UNRULY and SCDs Anemia: level is expected initially postop. Asymptomatic. Continue to monitor D/c planning: d/c to home today pending release from PT Plan: 07/17/17 10:05 Subjective: Molly is doing well today, denies SOB, chest pain and N/V. Objective: Vital Signs Temp Pulse Resp BP Pulse Ox 36.6 C 72 14 122/64 H 96 07/17/17 07:47 07/17/17 07:47 07/17/17 07:47 07/17/17 07:47 07/17/17 07:47 Laboratory Results 07/17/17 05:16 07/16/17 07/17/17 07/18/17 05:59 05:59 05:59 Intake Total 2500 Output Total 2000 Balance 500 LLE: incision dressing is clean and dry, NVI, +pf/df ICD10 Worksheet Patient Problems: Problems Problem Status Onset Primary localized osteoarthritis of left hip Acute Chest pain Active Pulmonary embolism Acute
--- NOTE | 2017-07-17 10:06 | SOAPPROG ---
SOAP Progress Note Assessment/Plan: Assessment: Patient is doing well POD 1 s/p L UD Pain management: pain is well controlled on oral pain meds. VTE ppx: recommend eliquis 2.5mg twice daily for 3 weeks, cont UNRULY and SCDs Anemia: level is expected initially postop. Asymptomatic. Continue to monitor D/c planning: d/c to home today pending release from PT Plan: 07/17/17 10:05 Subjective: Molly is doing well today, denies SOB, chest pain and N/V. Objective: Vital Signs Temp Pulse Resp BP Pulse Ox 36.6 C 72 14 122/64 H 96 07/17/17 07:47 07/17/17 07:47 07/17/17 07:47 07/17/17 07:47 07/17/17 07:47 Laboratory Results 07/17/17 05:16 07/16/17 07/17/17 07/18/17 05:59 05:59 05:59 Intake Total 2500 Output Total 2000 Balance 500 LLE: incision dressing is clean and dry, NVI, +pf/df ICD10 Worksheet Patient Problems: Problems Problem Status Onset Primary localized osteoarthritis of left hip Acute Chest pain Active Pulmonary embolism Acute
--- NOTE | 2017-07-17 11:17 | ASDISCHSUM ---
Discharge Information Plan Status:Home with No Needs Medically Cleared to Leave: Discharge Date:07/17/2017 10:39 AM CM D/C Disposition:Home, Routine, Self-Care ADT D/C Disposition:Home, Routine, Self-Care Projected Discharge Date:07/17/2017 10:39 AM Transportation at D/C: Discharge Delay Reason: Follow-Up Date:07/17/2017 10:39 AM Discharge Slot: Final Diagnosis: Placement Information Patient Contact Information Contact Name:RAY Relationship: Address:[address] [place] Phone: [facility]/Zip Code:[place] [address] Email: Financial Information Financial Class: Primary Plan Desc:MEDICARE INPATIENT Primary Plan Number:[id number] Secondary Plan Desc:FANNY Secondary Plan Number:[id number] Assessment Information Intervention Information
--- NOTE | 2017-07-17 11:17 | ASDISCHSUM ---
Discharge Information Plan Status:Home with No Needs Medically Cleared to Leave: Discharge Date:07/17/2017 10:39 AM CM D/C Disposition:Home, Routine, Self-Care ADT D/C Disposition:Home, Routine, Self-Care Projected Discharge Date:07/17/2017 10:39 AM Transportation at D/C: Discharge Delay Reason: Follow-Up Date:07/17/2017 10:39 AM Discharge Slot: Final Diagnosis: Placement Information Patient Contact Information Contact Name:RAY Relationship: Address:[address] City:[place] Phone: [facility]/Zip Code:[place] [address] Email: Financial Information Financial Class: Primary Plan Desc:MEDICARE INPATIENT Primary Plan Number:[id number] Secondary Plan Desc:FANNY Secondary Plan Number:[id number] Assessment Information Intervention Information
--- NOTE | 2017-07-17 11:17 | ASDISCHSUM ---
Discharge Information Plan Status:Home with No Needs Medically Cleared to Leave: Discharge Date:07/17/2017 10:39 AM CM D/C Disposition:Home, Routine, Self-Care ADT D/C Disposition:Home, Routine, Self-Care Projected Discharge Date:07/17/2017 10:39 AM Transportation at D/C: Discharge Delay Reason: Follow-Up Date:07/17/2017 10:39 AM Discharge Slot: Final Diagnosis: Placement Information Patient Contact Information Contact Name:RAY Relationship: Address:[address] City:[place] Phone: [facility]/Zip Code:[place] [address] Email: Financial Information Financial Class: Primary Plan Desc:MEDICARE INPATIENT Primary Plan Number:[id number] Secondary Plan Desc:FANNY Secondary Plan Number:[id number] Assessment Information Intervention Information
--- NOTE | 2017-07-18 07:08 | POSTANESTH ---
Post Anesthetic Evaluation Cardiovascular Status: Normal, Stable Respiratory Status: Normal, Stable Level of Consciousness/Mental Status: Can Participate in Eval Pain Control: Adequate, Prn Tx Ordered Nausea/Vomiting Control: Adequate, Prn Tx Ordered Complications Possibly Related to Anesthesia: None Noted
== END 2017-07-17 10:39 | disposition home or self-care (01) | DRG 470 ==
LOC: F3N 10:52
PROVIDERS: ADMIT Orthopaedic Surgery; ATTEND Orthopaedic Surgery
PROC: 0SRB04Z Replacement of Left Hip Joint with Ceramic on Polyethylene Synthetic Substitute, Open Approach (ICD-10-PCS; principal; 2017-07-16 13:15)
DX: M16.12 Unilateral primary osteoarthritis, left hip (principal); Z86.711 Personal history of pulmonary embolism
CPT/HCPCS: 97110-GP; 97116-GP; 97161-GP; 97165-GO; G8978-GP-CI; G8979-GP-CI; G8980-GP-CI; G8987-GO-CI; G8988-GO-CI; G8989-GO-CI; J0171; J0690; J1100; J1885; J2250; J2405; J2704; J2795; J3010

== ENCOUNTER → 2018-05-26 | Outpatient (CLI) | payer OTHER | LOC: FIMAGING 13:17 | PROVIDERS: ATTEND Orthopaedic Surgery | DX: M17.11 Unilateral primary osteoarthritis, right knee (principal); M23.41 Loose body in knee, right knee; M25.461 Effusion, right knee; I87.8 Other specified disorders of veins ==

== ENCOUNTER 2018-06-24 09:02 | Inpatient (IN) | payer OTHER ==
[~2018-06-24 09:02] MED LIST changes: -ROPIVACAINE 0.2% 80 MG, EPINEPHrine 0.2 MG, KETOROLAC TROMETHAMINE 30 MG in BAG 0 ML IU ONE; +ROPIVACAINE 0.2% 80 MG, EPINEPHrine 0.2 MG, KETOROLAC TROMETHAMINE 30 MG in SYRINGE 0 ML IU ONE; +TRANEXAMIC ACID 3,000 MG in NS (SYRINGE) 50 ML IRR ONE; -TRANEXAMIC ACID 3,000 MG in NS 50 ML IRR ONE
[2018-06-24] MEDS ORDERED: ceFAZolin 2 GM/DEXTROSE 100 ML IV ONE (09:19)
[2018-06-24] MEDS ORDERED: DEXAMETHASONE 4 MG/ML VIAL IVP ONE (09:19)
[2018-06-24] MEDS ORDERED: ACETAMINOPHEN 325 MG TAB PO ONE (09:19)
[2018-06-24] MEDS ORDERED: FAMOTIDINE 20 MG TAB PO ONE (09:19)
[2018-06-24] MEDS ORDERED: LR 1,000 ML IV ONE (09:24)
[2018-06-24] MEDS ORDERED: TRANEXAMIC ACID 3,000 MG/50 ML BAG IRR ONE (09:25)
--- NOTE | 2018-06-24 10:58 | PDANEPAE ---
ANE History of Present Illness OA here R TKA ANE Past Medical History - Cardiovascular History Hx Hypertension: No Hx Arrhythmias: No Hx Chest Pain: No Hx Coronary Artery / Peripheral Vascular Disease: No Hx CHF / Valvular Disease: No Hx Palpitations: No - Pulmonary History Hx COPD: No Hx Asthma/Reactive Airway Disease: No Hx Recent Upper Respiratory Infection: No Hx Oxygen in Use at Home: No Hx Sleep Apnea: No Sleep Apnea Screening Result - Last Documented: Negative Pulmonary History Comment: Hx Saddle PE in December 2016. W/U negative. S/P 6 months of anti-coagulation - Neurologic History Hx Cerebrovascular Accident: No Hx Seizures: No Hx Dementia: No - Endocrine History Hx Diabetes: No - Renal History Hx Renal Disorders: No - Liver History Hx Hepatic Disorders: No Hepatic History Comment: CHOLECYSTECTOMY - Neurological & Psychiatric Hx Hx Neurological and Psychiatric Disorders: No - Cancer History Hx Cancer: No - Congenital Disorder History Hx Congenital Disorders: No - GI History Hx Gastrointestinal Disorders: No - Other Health History Other Health History: ON IRON FOR LOW BLOOD COUNT - Chronic Pain History Chronic Pain: No - Surgical History Prior Surgeries: R KNEE SX X3 . hysterectomy. gland removed from neck ( r side). R arm sx as child ANE Review of Systems Review of Systems: - Exercise capacity METS (RN): 5 METS ANE Patient History - Allergies Allergies/Adverse Reactions: meperidine HCl [From Demerol] Allergy (Intermediate, Verified 11/27/16 14:12) LOW BP - Home Medications Home Medications: Herbals/Supplements -Info Only 1 ea PO DAILY 06/09/17 [Last Taken 05/25/18 07:00 ] [place]-3 Fatty Acids [Fish Oil 1000 mg (*)] 1,000 mg PO BID 05/04/18 [Last Taken 05/25/18 07:00] Vitamin B Complex [Vitamin B Complex (OTC)] 1 each PO DAILY 05/04/18 [Last Taken 05/25/18 07:00] - NPO status NPO Status: no food or drink >8 hours NPO Since - Liquids (Date): 06/24/18 NPO Since - Liquids (Time): 08:00 NPO Since - Solids (Date): 06/23/18 NPO Since - Solids (Time): 20:00 - Anes Hx Anes Hx: no prior problems - Smoking Hx Smoking Status: Never smoked - Alcohol Use Alcohol Use: Rarely - Family Anes Hx Family Anes Hx: none Family Hx Anesthesia Complications: NONE ANE Labs/Vital Signs - Vital Signs Blood Pressure: 137/80 Heart Rate: 70 Respiratory Rate: 14 O2 Sat (%): 97 Height: 172.72 cm Weight: 81.647 kg ANE Physical Exam - Airway Neck exam: FROM Mallampati Score: Class 2 Mouth exam: normal dental/mouth exam - Pulmonary Pulmonary: no respiratory distress, clear to auscultation - Cardiovascular Cardiovascular: regular rate and rhythym, no murmur, rub, or gallop - ASA Status ASA Status: II ANE Anesthesia Plan Anesthesia Plan: GA with mask, spinal Regional Anesthesia: single shot NB, adductor canal FNB Total IV Anesthesia: Yes
[2018-06-24] MEDS ORDERED: MIDAZOLAM 2 MG/2 ML VIAL IVP ONE (10:59)
[2018-06-24] MEDS ORDERED: PROPOFOL/EMULSION 500 MG/50 ML BOTTLE IV ONE ×2 (11:05→12:06)
[2018-06-24] MEDS ORDERED: ROPIVACAINE HCL 150 MG/30 ML INJ ONE (11:50)
--- NOTE | 2018-06-24 12:54 | POSTOPPROG ---
Post Op Note Date of Operation: 06/24/18 Surgeon: Latanya Espinoza Leather Drier: zia espinoza PA-C Anesthesiologist: dr. hinson Anesthesia: Spinal, Other (Specify) (adductor canal block) Pre-op Diagnosis: Right knee OA Post-op Diagnosis: same Indication: right knee pain Procedure: R TKA robotic assisted and sensor assisted Findings: severe knee OA and loose bodies Inf/Abcess present in the surg proc area at time of surgery?: No EBL: 50-100
[2018-06-24] MEDS ORDERED: PROMETHAZINE HCL 25 MG/ML INJ IVP PRN (12:55)
[2018-06-24] MEDS ORDERED: BISACODYL 10 MG SUPP PR PRN (12:55)
[2018-06-24] MEDS ORDERED: DIPHENOXYLATE/ATROPINE LOMOTIL 1 TAB PO PRN (12:55)
[2018-06-24] MEDS ORDERED: CYCLOBENZAPRINE 10 MG TAB PO PRN (12:55)
[2018-06-24] MEDS ORDERED: POLYETHYLENE GLYCOL 3350 17 GM PKT PO PRN (12:55)
[2018-06-24] MEDS ORDERED: TEMAZEPAM 15 MG CAP PO PRN (12:55)
[2018-06-24] MEDS ORDERED: ONDANSETRON 4 MG/2 ML VIAL IVP PRN ×2 (12:55→12:56)
[2018-06-24] MEDS ORDERED: MAGNESIUM HYDROXIDE 30 ML UDCUP PO PRN (12:55)
[2018-06-24] MEDS ORDERED: LACTULOSE 20 GM/30 ML UDCUP PO PRN (12:55)
[2018-06-24] MEDS ORDERED: oxyCODONE IR 5 MG TAB PO PRN ×2 (12:55→12:56)
[2018-06-24] MEDS ORDERED: METOCLOPRAMIDE 10 MG/2 ML VIAL IVP PRN (12:55)
[2018-06-24] MEDS ORDERED: ONDANSETRON DISINTEGRATING 4 MG TAB PO PRN (12:55)
[2018-06-24] MEDS ORDERED: diphenhydrAMINE 25 MG CAP PO PRN (12:55)
[2018-06-24] MEDS ORDERED: PROMETHAZINE HCL 25 MG SUPPR PR PRN (12:55)
[2018-06-24] MEDS ORDERED: HYDROCODONE/APAP 5/325 TAB PO PRN (12:56)
[2018-06-24] MEDS ORDERED: fentaNYL 100 MCG/2 ML INJ IVP PRN (12:56)
[2018-06-24] MEDS ORDERED: ACETAMINOPHEN 500 MG TAB PO PRN (12:56)
[2018-06-24] MEDS ORDERED: HYDROmorphONE/DILAUDID 2 MG/ML INJ IVP PRN (12:56)
[2018-06-24] MEDS ORDERED: NALOXONE HCL 0.4 MG/ML INJ IVP PRN (12:56)
--- NOTE | 2018-06-24 12:58 | POSTANESTH ---
Post Anesthetic Evaluation Cardiovascular Status: Normal, Stable, Similar to Pre-Op Cond Respiratory Status: Normal, Stable, Similar to Pre-op Cond. Level of Consciousness/Mental Status: Can Participate in Eval, Alert and Oriented Pain Control: Adequate, Prn Tx Ordered Nausea/Vomiting Control: Adequate, Prn Tx Ordered Complications Possibly Related to Anesthesia: None Noted
[2018-06-24] MEDS ORDERED: LR 1,000 ML IV SCH (13:00)
--- NOTE | 2018-06-24 13:09 | PDMN ---
Medical Necessity Medical necessity: Pt meets IP criteria per PA & MCG S-700; est los >2 mn s/p R TKA (cpt 50476); requiring further monitoring & therapy; comorbid advanced age, DVT; per order 06/24/18
[2018-06-24] MEDS: ACETAMINOPHEN 325 MG TAB PO SCH ×2 (17:18→23:59)
[2018-06-24] MEDS: ceFAZolin 2 GM/DEXTROSE 100 ML IV SCH (19:49)
[2018-06-24] MEDS: SENNOSIDES/DOCUSATE SODIUM TAB PO SCH (20:11)
[2018-06-24] MEDS: FAMOTIDINE 20 MG TAB PO SCH (20:11)
[2018-06-25] MEDS: ceFAZolin 2 GM/DEXTROSE 100 ML IV SCH (03:10)
[2018-06-25] MEDS: ACETAMINOPHEN 325 MG TAB PO SCH (05:54)
--- NOTE | 2018-06-25 08:23 | GOP ---
DATE OF OPERATION: 06/24/2018 SURGEON: Shaunna Dumont MD VALIDATION ARCHITECT: Nohemi Dumont PA-C ANESTHESIA: Spinal. PREOPERATIVE DIAGNOSIS: Right knee osteoarthritis. POSTOPERATIVE DIAGNOSIS: Right knee osteoarthritis. PROCEDURE PERFORMED: Right total knee arthroplasty with computer navigation, robotic assist. FINDINGS: ESTIMATED BLOOD LOSS: 30 cc. INDICATIONS: The patient is a 67-year-old female with severe and progressive pain and deformity of t he right knee unresponsive to conservative care. The risks and benefits of surgical intervention wer e explained in detail. DESCRIPTION OF PROCEDURE: The patient was brought to the operative room and placed on the table in t he supine position. Spinal anesthesia was induced without difficulty. A pneumatic tourniquet was appl ied about the right proximal thigh, and the leg was prepped and draped in a sterile fashion. The leg bennett was applied. After exsanguination by elevation the tourniquet was inflated to 250 mmHg. Incision was made anterior medial from the tibial tuberosity to a point 2 cm proximal to the superior pole of the patella. Medial parapatellar arthrotomy was carried out from the superior pole of the pa tella and posteriorly in line with the fibers of the Type II VMO. The medial collateral ligament was elevated and the infrapatellar fat pad was resected. The patella was everted and the articular surface was excised. A 38 mm patellar button was placed. Attention was turned first to the distal aspect of the femur. After exposure of the femur, 2 half pi ns were placed for fixation of the femoral array. In a similar fashion, 2 pins were placed anteromed ial on the tibia for fixation of the tibial array. External land marking and registration of the hip center was performed without difficulty. Internal femoral and tibial registration was carried out w ithout difficulty and the femoral and tibial checkpoints were placed and verified for accuracy. Attention was turned to the femur. The foot print for the size 5 femoral component was cut with the saw using the [employer] robotic system and verified for accuracy against the CT based plan. In a similar f ashion, the saw was used to cut the footprint for the size 5 tibial component using the [employer] system an d verified for accuracy against the CT based plan. The tibial articular surface was excised without d ifficulty, followed by the intercondylar box cut. The knee was extended and the remnants of the medial and lateral meniscus were excised. The posterior capsule was injected with ropivacaine, epinephrine and Toradol. A size 5 tibial tray was positioned . Trial reduction was then carried out. There was excellent range of motion, alignment, and stability using the 5 x 9 mm polyethylene. All trials were then removed. The joint was thoroughly irrigated and carefully dried. The press-fit c omponents were implanted. The permanent 5 x 9 mm polyethylene was placed without difficulty. The tourniquet was deflated and all bleeders were coagulated. The wound was thoroughly irrigated and closed using interrupted sutures of 2-0 Vicryl for the joint capsule. The subcu was closed with 3-0 V icryl and the skin with 4-0 Monocryl. Dermabond and Steri-Strips were applied followed by a compress joanne dressing. The patient was then moved from the operating room to the recovery room in good conditi on, having tolerated the procedure well. PATHOLOGY: Severe tricompartmental osteoarthritis with multiple loose bodies. /[id number]/MODL
--- NOTE | 2018-06-25 08:53 | SOAPPROG ---
SOAP Progress Note Assessment/Plan: Assessment: Patient is doing well POD 1 s/p R TKA Pain management: pain is well controlled on oral pain meds. VTE ppx: recommend eliquis BID for 4 weeks, cont UNRULY and SCDs Anemia: level is expected initially postop. Asymptomatic. Continue to monitor D/c planning: d/c to home today pending release from PT Plan: 06/25/18 08:52 Subjective: patient is doing well ,denies SOB , chest pain and N/V. Objective: Vital Signs Temp Pulse Resp BP Pulse Ox 36.3 C 70 14 121/63 H 97 06/25/18 07:37 06/25/18 07:37 06/25/18 07:37 06/25/18 07:37 06/25/18 07:37 Laboratory Results 06/25/18 05:05 06/24/18 06/25/18 06/26/18 05:59 05:59 05:59 Intake Total 3275 Output Total 550 Balance 2725 RLE; incision dressing is clean and dry, NVI, +pf/df ICD10 Worksheet Patient Problems: Problems Problem Status Onset Primary localized osteoarthritis of right knee Acute Chest pain Active Primary localized osteoarthritis of left hip Acute Pulmonary embolism Acute
[2018-06-25 08:55] VITALS: BP 95/44
[2018-06-25] MEDS ORDERED: APIXABAN 2.5 MG TAB PO SCH (09:00)
[2018-06-25] MEDS: SENNOSIDES/DOCUSATE SODIUM TAB PO SCH (09:38)
[2018-06-25] MEDS: FAMOTIDINE 20 MG TAB PO SCH (09:38)
--- NOTE | 2018-06-25 10:52 | ASMTLACE ---
RAUDE[place] Length of stay for Answers: 2 days current admission Acuity / Level of Answers: Yes Care: Did the patient have an inpatient admission? Comorbidities - select Answers: Other Notes: Hx Saddle PE all that apply # of Emergency department Answers: 0 visits in the last 6 months Score: 6 Date Signed: 06/25/2018 10:51 AM Electronically Signed By:MELISSA Mason
--- NOTE | 2018-06-25 17:01 | GDS ---
ADMISSION DIAGNOSIS: Right knee osteoarthritis. DISCHARGE DIAGNOSIS: Right knee osteoarthritis. PROCEDURE: Right total knee arthroplasty, robotic assisted. VTE PROPHYLAXIS: Recommend Eliquis 2.5 mg b.i.d. for 14 days due to history of PE's. BRIEF DESCRIPTION OF HOSPITAL STAY: Patient was admitted for an elective joint arthroplasty. The pa tient tolerated the procedure well and has passed physical therapy. The patient was given appropriat e antibiotic prophylaxis and venous thromboembolism prophylaxis. The patient's pain was well control led on oral pain medication, patient was holding down food, and had urinated. Decision was made to d ischarge the patient. The patient was given post-operative prescriptions pre-operatively. PLAN: Follow up as scheduled in Dr. Dumont's office, July 16 at 2 p.m. /[id number]/MODL
== END 2018-06-25 11:00 | disposition home or self-care (01) | DRG 470 ==
LOC: F3N 09:02 → OBSVTOIN 12:58 → F3N 14:03
PROVIDERS: ADMIT Orthopaedic Surgery; ATTEND Orthopaedic Surgery
PROC: 8E0Y0CZ Robotic Assisted Procedure of Lower Extremity, Open Approach (ICD-10-PCS; principal; 2018-06-24 10:45)
PROC: 8E0YXBZ Computer Assisted Procedure of Lower Extremity (ICD-10-PCS; principal; 2018-06-24 10:45)
PROC: 0SRC0JZ Replacement of Right Knee Joint with Synthetic Substitute, Open Approach (ICD-10-PCS; principal; 2018-06-24 10:45)
DX: M17.11 Unilateral primary osteoarthritis, right knee (principal); G89.4 Chronic pain syndrome
CPT/HCPCS: 97116-GP; 97161-GP; G8978-GP-CI; G8978-GP-CK; G8979-GP-CI; G8980-GP-CI; J0171; J0690; J1100; J1885; J2250; J2704; J2795